=== PATIENT | female | born 1990 | race Caucasian/White ===

== ENCOUNTER 2022-11-17 15:15 | Emergency (ER) | payer OTHER ==
[2022-11-17 15:30] VITALS: BMI 26.5
[2022-11-17] MEDS ORDERED: ACETAMINOPHEN 1000 MG/100 ML BAG IVPB ONE (15:58)
[2022-11-17] MEDS ORDERED: SODIUM CHLORIDE 0.9% 500 ML INFUS.BAG IV ONE (15:58)
[2022-11-17] MEDS ORDERED: ACETAMINOPHEN INJECTION 100 ML IVPB ONE (17:07)
[2022-11-17 18:26] LABS: POTASSIUM 4.4 mmol/L (3.5-5.1)
[2022-11-17 18:28] LABS: CALCIUM 8.7 mg/dL (8.5-10.1)
[2022-11-17 18:29] LABS: ALBUMIN 3.7 g/dl (3.4-5.0); BLOOD UREA NITROGEN 9.4 mg/dL (7-18)
[2022-11-17 18:32] LABS: CREATININE 0.7 mg/dL (0.55-1.3)
[2022-11-17 18:33] LABS: TOT PROT 7.3 g/dl (6.4-8.2)
[2022-11-17 18:34] LABS: BILIRUBIN,TOTAL 0.2 mg/dL (0.2-1)
[2022-11-17 18:57] VITALS: TEMP 97.9
[2022-11-17 19:14] LABS: BASO % 0.4 % (0-2.0); EOS % 1.2 % (0-4.5); HEMATOCRIT 35.9 % (32.4-45.2); HEMOGLOBIN 12.1 GM/dL (10.7-15.3); LYMPH % 41.6 % (8-40); MCH 27.3 pg (25.7-33.7); MCHC 33.6 g/dl (32.0-36.0); MEAN CELL VOLUME 81.1 fl (80-96); MEAN PLT VOLUME 7.9 fl (7.5-11.1); MONO % 7.3 % (3.8-10.2); NEUT % 49.5 % (42.8-82.8); PLATELET COUNT 301 10^3/uL (134-434); RBC 4.43 M/mm3 (3.60-5.2); RDW 13.6 % (11.6-15.6); WHITE BLOOD COUNT 6.4 K/mm3 (4.0-10.0)
[2022-11-17 20:19] LABS: POTASSIUM 4.4 mmol/L (3.5-5.1)
[2022-11-17 20:25] LABS: CREATININE 0.7 mg/dL (0.55-1.3)
[2022-11-17] MEDS ORDERED: cefTRIAXone SODIUM 1 GM VIAL ONE (21:41)
[2022-11-17] MEDS ORDERED: WATER FOR INJ,STERILE 10 ML ONE (21:44)
[2022-11-17 22:11] LABS: URINE APPEARANCE CLEAR; URINE BILIRUBIN NEGATIVE (NEGATIVE); URINE COLOR YELLOW; URINE GLUCOSE (UA) NEGATIVE (NEGATIVE); URINE KETONE NEGATIVE (NEGATIVE)
[2022-11-17 22:12] LABS: URINE LEUK ESTERASE NEGATIVE (NEGATIVE); URINE NITRITE NEGATIVE (NEGATIVE); URINE PROTEIN NEGATIVE (NEGATIVE)
[2022-11-18] MEDS ORDERED: DOXYCYCLINE HYCLATE 100 MG CAPSULE PO ONE ×2 (00:15→00:24)
[2022-11-18 00:30] VITALS: BP 135/79; PULSE 80; RESP 18
== END 2022-11-18 00:49 | disposition home or self-care (01) ==
LOC: JER 15:15
PROC: 3E033NZ Introduction of Analgesics, Hypnotics, Sedatives into Peripheral Vein, Percutaneous Approach (ICD-10-PCS; principal; 2022-11-17)
PROC: 3E033GC Introduction of Other Therapeutic Substance into Peripheral Vein, Percutaneous Approach (ICD-10-PCS; 2022-11-17)
DX: R10.31 Right lower quadrant pain (principal); R10.32 Left lower quadrant pain; N93.9 Abnormal uterine and vaginal bleeding, unspecified; D25.9 Leiomyoma of uterus, unspecified
CPT/HCPCS: 36415; 74177-TC; 76830-TC; 80048; 80053; 81003; 83690; 84702; 85025; 87081; 87086; 99285-25